=== PATIENT | male | born 1980 | race African-American/Black ===

== ENCOUNTER 2019-08-05 19:32 | Emergency (ER) | payer SELFPAY ==
[~2019-08-05] VITALS: Ht 180.3 cm; Wt 131.5 kg
--- NOTE | 2019-08-05 19:45 | NUR ---
PT WEARING MASK
[2019-08-05] MEDS ORDERED: ACETAMINOPHEN 325 MG TAB PO STA (21:05)
[2019-08-05] MEDS ORDERED: ACETAMINOPHEN 325 MG TAB ONE (21:11)
--- NOTE | 2019-08-05 21:32 | Diagnostic Imaging Report ---
EXAMINATION: CXR 2 VIEW - HOPD INDICATION: Cough, fever COMPARISON: None FINDINGS: TUBES and LINES: None. LUNGS: Normal lung volumes. Subtle peripheral hazy opacity in the right midlung periphery. PLEURA: No pleural effusion or pneumothorax. HEART AND MEDIASTINUM: The cardiomediastinal silhouette is unremarkable. BONES AND SOFT TISSUES: No acute osseous lesion. Soft tissues are unremarkable. UPPER ABDOMEN: No free air under the diaphragm. IMPRESSION: Subtle hazy opacity in the right midlung periphery could be atelectasis or pneumonia. Recommend follow-up chest radiograph in 6-8 weeks. Signed by: Wong Garza DO on 08/05/2019 9:29 PM
[2019-08-05 21:52] VITALS: BP 174/108
== END 2019-08-05 21:52 | disposition home or self-care (01) ==
LOC: FSED 19:32
DX: R50.9 Fever, unspecified (principal); R05 Cough; J12.9 Viral pneumonia, unspecified; I10 Essential (primary) hypertension
CPT/HCPCS: 71046; 80048; 80076; 83518; 85025; 87400; 99283